=== PATIENT | male | born 1995 | race Caucasian/White ===

== ENCOUNTER 2017-03-14 13:02 | Emergency (ER) | payer MEDICAID, OTHER ==
[~2017-03-14] VITALS: Ht 170.2 cm; Wt 67.5 kg
[2017-03-14 13:06] VITALS: Ht 170.2 cm; Wt 67.5 kg
[2017-03-14] MEDS ORDERED: NAPR-260 PO (15:39)
--- NOTE | 2017-03-14 15:50 | ERD ---
ER Documentation Chief Complaint Chief Complaint back pain feels like "sitting directly on his tailbone" HPI This a 21-year-old male presents the emergency department today complaining of pain on his tailbone for the past several days. Patient states that he bent down to pick something up when he felt pain in his back. States that it resolved and has now returned. States that last Sunday he went to a doctor to get checked out and was told he did not have hemorrhoids or anything wrong with his groin or hernia. States he took Advil yesterday. States that he gets some tingling and it was buttocks. States he only has pain when he sits and does not touch it. Denies any fevers or chills. Denies any pain currently. Denies any loss of bowel or bladder control. ROS All systems reviewed and are negative except as per history of present illness. Medications Home Meds Active Scripts Naproxen* (Naprosyn*) 500 Mg Tablet, 500 MG PO BID Y for PAIN AND/OR INFLAMMATION, #30 TAB Prov:ADRIÁN SYKES PA-C 03/14/17 PMhx/Soc Medical and Surgical Hx: pt denies Medical Hx, pt denies Surgical Hx Hx Alcohol Use: No Hx Substance Use: No Hx Tobacco Use: No Smoking Status: Never smoker Physical Exam Vitals Vital Signs Date Time Temp Pulse Resp B/P Pulse Ox O2 Delivery O2 Flow Rate FiO2 03/14/17 13:06 98.6 70 18 152/99 97 Physical Exam Const: NAD Head: Atraumatic Eyes: Normal Conjunctiva ENT: Normal External Ears, Nose and Mouth. Neck: Full range of motion..~ No meningismus. Resp: Clear to auscultation bilaterally Cardio: Regular rate and rhythm, no murmurs Skin: No petechiae or rashes Back: No coccyx tenderness to palpation. No fluctuance or erythema or warmth. Ext: No cyanosis, or edema Neur: Awake and alert Psych: Normal Mood and Affect Procedures/MDM This is a Is a 21-year-old male presents the emergency department today complaining of coccyx pain when he sits down. Patient did report that he had bent forward to pickle maker something heavy and he had pain at that time but since resolved and now his pain is returned again. Patient's physical exam is essentially benign. There is no erythema or warmth or fluctuance and I do not see evidence of a pilonidal cyst at this time. He is afebrile and otherwise well-appearing. Patient denied any pain currently and really states that he does not have pain when you touch it but only with sitting down. I have low suspicion for acute fracture dislocation given that there was no trauma however I did offer to obtain images for the patient and he has declined at this time. Patient symptoms at this time is consistent with back pain likely coccydynia or coxalgia. Patient declined any pain medication here in the emergency department. He was given a prescription for Naprosyn for home and instructed to use ice and heat intermittently. At this time the patient is stable for discharge and outpatient management. Patient should follow up with their PCP in the next 1-2 days. They may return to the emergency department sooner for any persistent or worsening of symptoms. Patient understood and agreed with the plan. Discussed the patient with Dr. Serna and she is in agreement with the plan. Departure Diagnosis: Primary Impression: Back pain Back pain location: low back pain Chronicity: unspecified Back pain laterality: midline Sciatica presence: unspecified whether sciatica present Qualified Code: M54.5 - Midline low back pain, unspecified chronicity, with sciatica presence unspecified Condition: Fair Patient Instructions: Back Pain (Acute Or Chronic) Referrals: [facility] YOU HAVE RECEIVED A MEDICAL SCREENING EXAM AND THE RESULTS INDICATE THAT YOU DO NOT HAVE A CONDITION THAT REQUIRES URGENT TREATMENT IN THE EMERGENCY DEPARTMENT. FURTHER EVALUATION AND TREATMENT OF YOUR CONDITION CAN WAIT UNTIL YOU ARE SEEN IN YOUR DOCTORS OFFICE WITHIN THE NEXT 1-2 DAYS. IT IS YOUR RESPONSIBILITY TO MAKE AN APPOINTMENT FOR FOLOW-UP CARE. IF YOU HAVE A PRIMARY DOCTOR --you should call your primary doctor and schedule an appointment IF YOU DO NOT HAVE A PRIMARY DOCTOR YOU CAN CALL OUR PHYSICIAN REFERRAL HOTLINE AT IF YOU CAN NOT AFFORD TO SEE A PHYSICIAN YOU CAN CHOSE FROM THE FOLLOWING [facility] [address] [facility] [address] [facility] [address] [facility] [address] [facility]. [facility] [address] [facility]. [facility] [address] Additional Instructions: Call your primary care doctor TOMORROW for an appointment during the next 1-2 days.See the doctor sooner or return here if your condition worsens before your appointment time. Take Naprosyn or Tylenol or Motrin for pain. Apply ice and heat intermittently for pain. Return for any worsening of symptoms, fevers ADRIÁN SYKES PA-C Mar 14, 2017 15:50
== END 2017-03-14 16:32 | disposition home or self-care (01) ==
LOC: FTE 13:02
DX: M54.5 Low back pain (principal)
CPT/HCPCS: 99283

== ENCOUNTER 2017-05-06 14:08 | Emergency (ER) | payer MEDICAID ==
[~2017-05-06] VITALS: Ht 167.6 cm; Wt 71.9 kg
[~2017-05-06 14:08] MED LIST: NAPR-260 PO
[2017-05-06 14:11] VITALS: Ht 167.6 cm; Wt 71.9 kg
[2017-05-06] MEDS ORDERED: CLOT30CR24 TOP (15:59)
--- NOTE | 2017-05-06 16:02 | ERD ---
ER Documentation Chief Complaint Chief Complaint foreskin swelling x 2 days HPI 21-year-old male presents with some irritation of the foreskin of his penis for the last 2 days. Denies any penile discharge, dysuria, fevers, denies any testicular pain or swelling. ROS All systems reviewed and are negative except as per history of present illness. Medications Home Meds Active Scripts Clotrimazole* (Clotrimazole* AF) 1% - 30 Gm Cream.gm., 1 APPLIC TOP BID for 10 Days, TUB Prov:UMA ARRINGTON MD 05/06/17 Naproxen* (Naprosyn*) 500 Mg Tablet, 500 MG PO BID Y for PAIN AND/OR INFLAMMATION, #30 TAB Prov:ADRIÁN SYKES PA-C 03/14/17 PMhx/Soc Hx Alcohol Use: No Hx Substance Use: No Hx Tobacco Use: No Physical Exam Vitals Vital Signs Date Time Temp Pulse Resp B/P Pulse Ox O2 Delivery O2 Flow Rate FiO2 05/06/17 14:11 98.7 93 20 143/101 97 Physical Exam Const: [], [id number]. Head: Atraumatic Eyes: Normal Conjunctiva ENT: Normal External Ears, Nose and Mouth. Neck: Full range of motion..~ No meningismus. Resp: Clear to auscultation bilaterally Cardio: Regular rate and rhythm, no murmurs Abd: Soft, non tender, non distended. Normal bowel sounds. Genital exam shows uncircumcised male. There is some irritation upon retraction with some moisture. There is no vesicles, induration, swelling. Testicles are nontender descended normal size bilaterally. No penile discharge. Skin: No petechiae or rashes Back: No midline or flank tenderness Ext: No cyanosis, or edema Neur: Awake and alert Psych: Normal Mood and Affect Procedures/MDM Patient presents with signs and symptoms of balanitis. Treated with Lotrimin, return precautions and primary care follow-up. Patient declined any STD testing. Is no evidence of testicular torsion, abdominal pain, additional emergent causes of presenting complaints. The patient was stable with no new complaints during the ER course. Clinically, there is no current evidence to suggest meningitis, sepsis, acute abdomen, pneumonia, acute coronary syndrome, pulmonary embolism, or any other emergent condition appearing to require further evaluation or hospitalization. The patient should certainly return for any new or worsening symptoms per the aftercare instructions. They should otherwise follow-up with her primary care doctor for reevaluation this week. Departure Diagnosis: Primary Impression: Balanitis Condition: Stable Patient Instructions: Balanitis Additional Instructions: Recheck for new or worsening symptoms or primary care doctor. Okay to continue hydrocortisone. UMA ARRINGTON MD May 06, 2017 16:02
== END 2017-05-06 16:14 | disposition home or self-care (01) ==
LOC: FTE 14:08
DX: N48.1 Balanitis (principal)
CPT/HCPCS: 99283

== ENCOUNTER 2018-11-15 07:27 | Emergency (ER) | payer MEDICAID ==
[~2018-11-15] VITALS: Ht 167.6 cm; Wt 75.0 kg
[~2018-11-15 07:27] MED LIST changes: +CLOT30CR24 TOP; -NAPR-260 PO; +NAPR-985 PO
[2018-11-15 07:29] VITALS: BP 158/94; PULSE 100; RESP 20; Ht 167.6 cm; Wt 75.0 kg
[2018-11-15] MEDS ORDERED: KETOROLAC 30 MG INJ IM STA (07:39)
--- NOTE | 2018-11-15 07:43 | ERD ---
ER Documentation Chief Complaint Chief Complaint pt is bib family with c/o stabbing pain to rib area x 4 hrs, + with inspir HPI Patient is a 23-year-old male who presents with left-sided rib cage pain that radiates up the left chest and left side of his neck. This is been going on for about 4 hours. It is worse when he hunches over or takes a deep breath. He has no chest pain palpitations or shortness of breath. Denies any alcohol smoking or drugs. No cardiac past medical history or any other significant past medical history. He did try taking Motrin at home but did not help he states. No fever. No trauma. ROS All systems reviewed and are negative except as per history of present illness. Medications Home Meds Active Scripts Ibuprofen* (Motrin*) 800 Mg Tab, 800 MG PO Q6, #30 TAB Prov:LANRE APARICIO PA-C 11/15/18 Cyclobenzaprine Hcl* (Cyclobenzaprine Hcl*) 10 Mg Tablet, 10 MG PO BID, #15 TAB Prov:LANRE APARICIO PA-C 11/15/18 Clotrimazole* (Clotrimazole* AF) 1% - 30 Gm Cream.gm., 1 APPLIC TOP BID for 10 Days, TUB Prov:UMA ARRINGTON MD 05/06/17 Naproxen* (Naprosyn*) 500 Mg Tablet, 500 MG PO BID PRN for PAIN AND/OR INFLAMMATION, #30 TAB Prov:ADRIÁN SYKES PA-C 03/14/17 Allergies Allergies: Coded Allergies: shellfish derived (Verified Allergy, Severe, ANAPHYLAXIS, 05/06/17) Penicillins (Verified Allergy, Unknown, 11/15/18) PMhx/Soc History of Surgery: No Anesthesia Reaction: No Hx Neurological Disorder: No Hx Respiratory Disorders: No Hx Cardiac Disorders: No Hx Psychiatric Problems: No Hx Miscellaneous Medical Probl: No Hx Alcohol Use: No Hx Substance Use: No Hx Tobacco Use: No FmHx Family History: No diabetes Physical Exam Vitals Vital Signs Date Temp Pulse Resp B/P (MAP) Pulse Ox O2 O2 Flow FiO2 Time Delivery Rate 11/15/18 97.9 100 20 158/94 97 07:29 (115) Physical Exam INITIAL VITAL SIGNS: Reviewed by me GENERAL: Awake, alert and oriented x 4, well appearing, nontoxic, speaking in full sentences. No acute distress HEAD: Atraumatic NECK: Supple. No masses. Full range of motion. No meningismus. No midline tenderness. EYES: EOMI. PERRL. RESPIRATORY: Clear to auscultation bilaterally. Symmetric chest wall rise. No wheezing or rales. No accessory muscle use. CV: Regular rate and rhythm. No murmurs, rubs, or gallops. Upper Extremity -left: Skin: No laceration, or evidence of external trauma Compartments: Soft Motor: Full active range of motion shoulder/elbow/wrist/hand Sensation: Intact Bones: Nontender humerus/elbow/forearm Pulses/Perfusion: 2+ radial, Capillary refill < 2 seconds Results 24 hrs Current Medications Medications Dose Sig/Gilberto Start Time Status Last (Trade) Ordered Route PRN Stop Time Admin Dose Reason Admin Diazepam 5 mg ONCE ONCE 11/15/18 DC 11/15/18 (Valium) PO 08:00 07:45 11/15/18 08:01 Ketorolac 30 mg ONCE STAT 11/15/18 DC 11/15/18 Tromethamine IM 07:39 07:46 (Toradol) 11/15/18 07:40 Procedures/MDM Patient has left-sided rib pain. Likely musculoskeletal. EKG is sinus tachycardia with a rate of [address] elevation or acute ischemic changes. He was given Toradol and Valium and x-ray ordered. X-ray is negative. Patient felt better after the given treatment and was discharged with ibuprofen and Flexeril. Patient counseled regarding my diagnostic impression and care plan. Prior to discharge all questions answered. Pt agrees with treatment plan and understands strict return precautions. Pt is instructed to follow up with primary care provider within 24-48 hours. Precautionary instructions provided including instructions to return to the ER if not improving or for any worsening or changing symptoms or concerns. Departure Diagnosis: Primary Impression: Rib pain Condition: Stable LANRE APARICIO PA-C Nov 15, 2018 07:43
[2018-11-15] MEDS ORDERED: DIAZEPAM 5 MG TAB PO ONE (08:00)
[2018-11-15] MEDS ORDERED: CYCL10TA7 PO (08:44)
[2018-11-15] MEDS ORDERED: IBUP800T48 PO (08:44)
== END 2018-11-15 08:48 | disposition home or self-care (01) ==
LOC: FTE 07:27
DX: R07.81 Pleurodynia (principal)
CPT/HCPCS: 71100; 93005; 96372; J1885; Z7502; Z7610